=== PATIENT | female | born 1985 | race Caucasian/White ===

== ENCOUNTER → 2021-10-16 | Outpatient (CLI) | payer MEDICAID ==
[~2021-10-16] MED LIST: REGADENOSON 0.4 MG/5 ML SYR (LEXISCAN) IV ONE
[2021-10-16] MEDS: CATHETER FLUSH 10 ML SYR IVP PRN ×2 (12:43→13:41)
[2021-10-16 13:40] VITALS: BP 121/91
--- NOTE | 2021-10-16 15:26 | Cardiology Stress Test Report ---
Stress Test Report Date of Procedure/Referring: Date of Procedure: Oct 16, 2021 PCP No,Local Physician Admitting Physician Admitting Physician: Attending Physician: Felicita Alves MD Indications: HTN Baseline Heart Rate: 70 Baseline Blood Pressure: Blood Pressure Systolic: 121 Blood Pressure Diastolic: 91 Baseline Vitals Vital Signs Date Time Temp Pulse Resp B/P (MAP) Pulse Ox O2 Delivery O2 Flow Rate FiO2 10/16/21 13:40 67 121/91 (101) Baseline EKG: Baseline EKG: NSR Summary After explaining the procedure to the patient, she signed a consent and then brought to the stress nuclear laboratory. Patient received 0.4 mg Lexiscan for stress test, ECG, heart rate and blood pressure were monitored continuously. Resting and stress dose of radio tracer were injected, imaging was acquired and reviewed in short axis, horizontal long axis and vertical long axis views. TID: 1.23 SSS: 3 SDS: 1 EF: 54 1. Patient tolerated Lexiscan well 2. Breast attenuation with mild reversible ischemia involving the mid to apical anterior wall 3. Transient ischemic dilatation 1.23 4. Normal left ventricular size, ejection fraction 54% FELICITA ALVES MD Oct 16, 2021 15:26
== END ==
LOC: CARD 11:00
PROVIDERS: ATTEND Internal Medicine Cardiovascular Disease
DX: I11.9 Hypertensive heart disease without heart failure (principal); I25.10 Atherosclerotic heart disease of native coronary artery without angina pectoris
CPT/HCPCS: 78452; 93017; 93306; A9502

== ENCOUNTER 2021-10-31 09:56 | Day surgery (SDC) | payer MEDICAID ==
[~2021-10-31] VITALS: Ht 162.6 cm; Wt 114.3 kg
[2021-10-31] VITALS (10 sets, daily range): BP systolic 103–132; BP diastolic 64–80
[2021-10-31] MEDS ORDERED: LIDOCAINE 1% INJ 20 ML VIAL ONE (10:02)
[2021-10-31] MEDS ORDERED: HEParin (CATH LAB) 2,000 ML IV ONE (10:03)
[2021-10-31] MEDS ORDERED: CATHETER FLUSH 10 ML SYR IV PRN (10:15)
[2021-10-31] MEDS ORDERED: NS IV 1000 ML 1,000 ML IV ONE (10:15)
[2021-10-31] MEDS ORDERED: ASPIRIN 81 MG CHEW (CHILDREN'S ASA) PO ONE (10:15)
[2021-10-31] MEDS ORDERED: ASPIRIN 81 MG CHEW (CHILDREN'S ASA) ONE (10:22)
[2021-10-31] MEDS ORDERED: fentaNYL INJ 100 MCG/2 ML AMP ONE (10:23)
[2021-10-31] MEDS ORDERED: NITRO DRIP 25000 MCG/D5W 250 ML IV ONE (10:23)
[2021-10-31] MEDS ORDERED: VERAPAMIL 5 MG/2 ML (CALAN) VIAL IV ONE (10:23)
[2021-10-31] MEDS ORDERED: MIDAZOLAM 5 MG/5 ML (VERSED) VIAL ONE (10:23)
[2021-10-31] MEDS ORDERED: HEParin 1000 UNIT/ML (10ML VIAL) FOR BOLUS ONE (10:23)
[2021-10-31] MEDS ORDERED: CYPR4TAB41 PO (10:47)
[2021-10-31] MEDS ORDERED: BUSP10TA95 PO (10:47)
[2021-10-31] MEDS ORDERED: CETI10TA17 PO (10:47)
[2021-10-31] MEDS ORDERED: PROP10TA8 PO (10:47)
[2021-10-31] MEDS ORDERED: FURO20TA4 PO (10:47)
[2021-10-31] MEDS ORDERED: GABA-486 PO (10:47)
[2021-10-31] MEDS ORDERED: LACO50TA6 PO (10:47)
[2021-10-31] MEDS ORDERED: RT-ALBUINH IH (10:47)
[2021-10-31] MEDS ORDERED: LEVE500T6 PO ×2 (10:47→11:14)
[2021-10-31] MEDS ORDERED: CARI3CAP PO (10:47)
[2021-10-31] MEDS ORDERED: FLUO20TA28 PO (10:47)
[2021-10-31] MEDS ORDERED: GUAN2TAB PO (10:47)
[2021-10-31] MEDS ORDERED: PANT40TA52 PO (10:47)
[2021-10-31] MEDS ORDERED: DOCU100C37 PO (10:47)
[2021-10-31] MEDS ORDERED: MELA10TA2 PO (10:47)
[2021-10-31] MEDS ORDERED: MELO15TA39 PO (10:47)
[2021-10-31] MEDS ORDERED: ARIP882S2 IM (10:47)
--- NOTE | 2021-10-31 10:54 | Pre-Op Note & Conscious Sedat ---
Pre-Operative Progress Note H&P Reviewed The H&P was reviewed, patient examined and no changes noted. Date H&P Reviewed: Oct 31, 2021 Time H&P Reviewed: 10:49 Pre-Op Diagnosis: Abnormal stress test and angina pectoris. Given her current clinical status, she is considered vulnerable. She has no history of heart failure. Conscious Sedation Pre-Proced ASA Score 2 For ASA 3 and 4: Consider anesthesia and medical clearance. Also, for patients with a history of failed moderate sedation consider anesthesia. Airway Lungs Heart ASA score ASA 1: a normal healthy patient ASA 2: a patient with a mild systemic disease (mid diabetes, controlled hypertension, obesity ASA 3: a patient with a severe systemic disease that limits activity (angina, COPD, prior Myocardial infarction) ASA 4: a patient with an incapacitating disease that is a constant threat to life (CHF, renal failure) ASA 5: a moribund patient not expected to survive 24 hrs. (ruptured aneurysm) ASA 6: a declared brain- patient whose organs are being harvested. For emergent operations, add the letter E after the classification Mallampati Classification Grade 3 Sedation Plan Analgesia, Amnesia, Plan communicated to team members, Discussed options with patient/fam, Discussed risks with patient/fam The patient is an appropriate candidate to undergo the planned procedure, sedation, and anesthesia. The patient immediately re-assessed prior to indication. MUKESH DILLON JR, MD Oct 31, 2021 10:54
[2021-10-31] MEDS ORDERED: LEVE100015 PO (11:07)
--- NOTE | 2021-10-31 12:12 | Cardiac Cath Report ---
CARDIAC CATHETERIZATION DATE OF PROCEDURE: 10/31/2021 INDICATION: Abnormal stress test and angina pectoris. HISTORY: The patient is a 35 year old female with no known history of coronary artery disease who recently developed chest discomfort. She underwent a nuclear stress test that showed a minimal sized ischemic defect but with evidence of transient ischemic dilatation which is considered a moderate risk result. Therefore, she is now referred for further evaluation with a cardiac catheterization. Given her current clinical status, she is considered vulnerable. She has no history of heart failure. PROCEDURES PERFORMED: 1. Left heart catheterization with hemodynamic measurements. 2. Diagnostic [place] coronary angiography. PROCEDURE DESCRIPTION: After informed consent and in the fasting state, left heart catheterization was performed through the right radial artery utilizing a 6 Lao system by percutaneous approach. A 5 Lao JR4 catheter was utilized to interrogate the left ventricle and right coronary artery and a 5 [place]o JL 3.5 catheter was utilized to interrogate the left coronary artery. All catheters were exchanged over a guidewire. Following the procedure, a vascular band was applied to the radial artery access site and the sheath was removed with good hemostasis. RESULTS: HEMODYNAMICS: Aortic pressure was 100/54 mmHg. The left ventricular pressure was 114/0 mmHg with a left ventricular end-diastolic pressure of 12 mmHg. There was no significant pressure gradient upon pullback across aortic valve. CORONARY ANGIOGRAPHY: Left main coronary artery: Free of significant disease. Left anterior descending coronary artery: Free of significant disease. Left circumflex coronary artery: Free of significant disease. Right coronary artery: Dominant with a somewhat high and downgoing takeoff but free of significant disease. IMPRESSION: 1. Normal central aortic pressure with mildly elevated left ventricular end- diastolic pressure. 2. Angiographically normal-appearing coronary arteries in a right dominant system. 3. The patient is known to have normal left ventricular systolic function with a calculated ejection fraction of 54% by nuclear stress test performed on 10/16/2021. Certain portions of this document may have been dictated utilizing voice recognition technology. Inherent to this technology, typographical and grammatical errors may exist. As much as I am diligent to identify and correct these mistakes, some errors may remain in the document. MUKESH DILLON JR, MD Oct 31, 2021 12:11
[2021-10-31] MEDS ORDERED: NS IV 1000 ML 1,000 ML IV SCH (12:15)
== END 2021-10-31 15:10 ==
LOC: CATH 09:56 → SDC 12:24 → CATH 15:10
PROVIDERS: ATTEND Internal Medicine Cardiovascular Disease
DX: R07.89 Other chest pain (principal); Z79.899 Other long term (current) drug therapy; F17.210 Nicotine dependence, cigarettes, uncomplicated; E78.2 Mixed hyperlipidemia; I65.23 Occlusion and stenosis of bilateral carotid arteries; I10 Essential (primary) hypertension
CPT/HCPCS: 87081; 93458; C1894